=== PATIENT | female | born 1940 | race Caucasian/White ===

== ENCOUNTER → 2019-01-14 17:12 | Outpatient (CLI) | payer MEDICARE, BC ==
[2015-07-03 06:50] VITALS: BMI 20.6
[~2019-01-14 17:12] MED LIST: ASPIRIN81 MG PO; CALCIUM 250+D T1 TAB PO; CORDARONE200 MG PO; FERREX 150 PLUS1 CAP PO; GABAPENTIN100 MG PO; HYDROCODONE-APA1 TAB PO; HYZAAR 100-25 T1 TAB PO; INDERAL10 MG PO; LEVAQUIN500 MG PO; PRADAXA150 MG PO; ZANTAC150 MG PO
[2019-01-14 17:58] LABS: BASOPHILS 0.4 % (0-2); EOSINOPHILS 0.6 % (0-7); HEMATOCRIT 44.8 % (36.0-48.0); HEMOGLOBIN 14.5 g/dL (12-16); IMMATURE GRANULOCYTES 0.1 % (0-5); LYMPHOCYTES 24.2 % (15-50); MCH 31.9 pg (26.0-34.0); MCHC 32.4 g/dL (31.0-37.0); MCV 98.7 fL (80.0-100.0); MEAN PLATELET VOLUME 11.5 fL (7.4-10.4); MONOCYTES 11.5 % (2-11); NEUTROPHILS 63.2 % (40-80); RBC 4.54 10x6/uL (4.00-5.40); RDW 13.8 % (11.5-14.5); WBC 7.9 10x3/uL (4.8-10.8)
[2019-01-14 18:04] LABS: PLATELET COUNT 257 10x3/uL (130-400)
== END | disposition home or self-care (01) ==
LOC: D.LABREF 17:12
PROVIDERS: ATTEND Internal Medicine Gastroenterology
DX: R19.5 Other fecal abnormalities (principal); K64.1 Second degree hemorrhoids; K57.30 Diverticulosis of large intestine without perforation or abscess without bleeding

== ENCOUNTER → 2019-04-25 09:57 | Outpatient (CLI) | payer MEDICARE, BC ==
[2015-07-03 06:50] VITALS: BMI 20.6
--- NOTE | 2019-04-29 12:18 | EC ---
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 Ao 107 cm/sec RVOT 37.0 cm/sec RA cm/sec PA 67.0 cm/sec AV Gradient Peak 4.6 mmHg AV Mean 2.8 mmHg AV Area 1.2 cm MV Gradient Peak 16.2 mmHg MV Mean 3.1 mmHg MV Area cm COMMENTS: OP - HC Manager Animal: 1 GABY TONY Loan Manager: 3 Dr. Schwartz TAPE# PACS Pericardial Effusion N DATE OF SERVICE: Adequate 2D, color flow imaging, spectral Doppler, and M-mode. No LVH. LV internal dimension is normal. Wall motion is normal. EF is greater than or equal to 55%. Aortic valve is tricuspid. There is no evidence of stenosis by Doppler interrogation. Left atrium is dilated at 6.1 cm. Mitral valve does show prolapse of the posterior leaflet. Severe MR. Right-sided chambers are grossly normal. Mild TR. ECHOCARDIOGRAM REPORT [id number] ANGE GAMEZ TRANSINT:[id number] Voice Confirmation ID: [id number] DOCUMENT ID: [id number] MARLYS VO MD at 1218 CC: [id number] DICTATION DATE: 04/26/19 1415 TECHNICAL PHOTOGRAPHER: 04/26/19 2227 DEP CLI 04/25/19 [place] [id number] [place] [id number]
== END | disposition home or self-care (01) ==
LOC: D.HCCECHO 09:57
PROVIDERS: ATTEND Internal Medicine Interventional Cardiology
DX: I34.0 Nonrheumatic mitral (valve) insufficiency (principal)

== ENCOUNTER 2020-07-13 13:20 | Emergency (ER) | payer MEDICARE, BC ==
[~2020-07-13] VITALS: Ht 160 cm; Wt 56.8 kg
[~2020-07-13 13:20] MED LIST changes: +AMIODARONE HCL100 MG PO; -CORDARONE200 MG PO
[2020-07-13 13:29] VITALS: Ht 160 cm; Wt 56.8 kg
[2020-07-13 13:35] VITALS: BP 196/99
[2020-07-13 14:03] LABS: PLATELET COUNT 243 10x3/uL (130-400)
[2020-07-13 15:02] LABS: ANION GAP 10.2 mmol/L (8-16); CALCIUM 9.5 mg/dL (8.5-10.1); CARBON DIOXIDE 29.5 mmol/L (21.0-32.0); CREATININE - SERUM 1.2 mg/dL (0.6-1.3); POTASSIUM - SERUM 3.7 mmol/L (3.5-5.1)
[2020-07-13 15:08] LABS: ALBUMIN 3.8 g/dL (3.4-5.0); BILIRUBIN - TOTAL 0.55 mg/dL (0.2-1.3); PROTEIN - SERUM 7.8 g/dL (6.4-8.2)
[2020-07-13 15:12] LABS: ERYTHROCYTE SEDIMENTATION RATE 15 mm/hr (0-30)
[2020-07-13 15:57] LABS: BASOPHILS 0.7 % (0-2); EOSINOPHILS 1.5 % (0-7); HEMATOCRIT 39.9 % (36.0-48.0); IMMATURE GRANULOCYTES 0.1 % (0-5); LYMPHOCYTE ABS# 1.43 10x3/uL (1.18-3.74); LYMPHOCYTES 19.4 % (15-50); MCH 30.9 pg (26.0-34.0); MCHC 32.6 g/dL (31.0-37.0); MCV 94.8 fL (80.0-100.0); MEAN PLATELET VOLUME 10.4 fL (7.4-10.4); MONOCYTES 8.4 % (2-11); NEUTROPHIL ABS# 5.17 10x3/uL (1.56-6.13); NEUTROPHILS 69.9 % (40-80); PLATELET COUNT 232 10x3/uL (130-400); RBC 4.21 10x6/uL (4.00-5.40); RDW 14.2 % (11.5-14.5); WBC 7.4 10x3/uL (4.8-10.8)
[2020-07-13] MEDS ORDERED: NORVASC5 MG PO (16:18)
== END 2020-07-13 17:54 | disposition home or self-care (01) ==
LOC: D.ER 13:20
PROVIDERS: Emergency Medicine
DX: H47.011 Ischemic optic neuropathy, right eye (principal); H54.7 Unspecified visual loss; I10 Essential (primary) hypertension